=== PATIENT | male | born 1990 | race African-American/Black ===

== ENCOUNTER 2019-07-09 23:43 | Inpatient (IN) | payer OTHER ==
[~2019-07-09] VITALS: Ht 180.3 cm; Wt 109.0 kg
--- NOTE | 2019-07-09 23:50 | PHYS DOC ---
Adult General Chief Complaint Chief Complaint: Right ankle injury HPI HPI Patient is a 29 year old -[place] male who is brought to the ER by EMS from the correctional facility secondary to right ankle injury. Patient states that he jumped off of a low table and his leg gave out. EMS report a deformity and he is currently in a splint. Patient has refused IV and pain medication at this time but is very cooperative otherwise. No numbness or tingling distally and he is able to move his toes. Pulses are intact. Review of Systems Review of Systems All other systems were reviewed and found to be within normal limits, except as documented in this note. Current Medications Current Medications Current Medications Medications (Trade) Dose Ordered Sig/Denis Start Time Stop Time Status Last Admin Dose Admin Ondansetron HCl (Zofran) 4 mg 1X ONCE 07/10/19 01:00 07/10/19 01:01 DC Propofol (Diprivan) 200 mg 1X ONCE 07/10/19 01:00 07/10/19 01:01 DC Allergies Allergies Allergies Coded Allergies Type Severity Reaction Last Updated Verified No Known Drug Allergies 07/10/19 No Physical Exam Physical Exam Constitutional: Well developed, well nourished, no acute distress, non-toxic appearance. [] HENT: Normocephalic, atraumatic, bilateral external ears normal, oropharynx moist, no oral exudates, nose normal. [] Eyes: PERRLA, EOMI, conjunctiva normal, no discharge. [] Neck: Normal range of motion, no tenderness, supple, no stridor. [] Cardiovascular:Heart rate regular rhythm, no murmur [] Lungs & Thorax: Bilateral breath sounds clear to auscultation [] Abdomen: Bowel sounds normal, soft, no tenderness, no masses, no pulsatile masses. [] Skin: Warm, dry, no erythema, no rash. [] Back: No tenderness, no CVA tenderness. [] Extremities: Normal except for the right ankle which is currently in a splint by EMS. There appears to be a lateral deformity. Pulses are intact and sensation is normal in movement of the toes is normal. Neurologic: Alert and oriented X 3, normal motor function, normal sensory function, no focal deficits noted. [] Psychologic: Affect normal, judgement normal, mood normal. [] Current Patient Data Vital Signs Vital Signs Date Time Temp Pulse Resp B/P (MAP) Pulse Ox O2 Delivery O2 Flow Rate FiO2 07/09/19 23:59 98.4 89 20 151/93 (112) 99 Room Air 98.4 Lab Values Laboratory Tests Test 07/10/19 00:40 White Blood Count 11.1 x10^3/uL (4.0-11.0) H Red Blood Count 5.22 x10^6/uL (4.30-5.70) Hemoglobin 15.7 g/dL (13.0-17.5) Hematocrit 45.4 % (39.0-53.0) Mean Corpuscular Volume 87 fL (79-100) Mean Corpuscular Hemoglobin 30 pg (25-35) Mean Corpuscular Hemoglobin Concent 35 g/dL (31-37) Red Cell Distribution Width 13.1 % (11.5-14.5) Platelet Count 360 x10^3/uL (140-400) Neutrophils (%) (Auto) 75 % (31-73) H Lymphocytes (%) (Auto) 19 % (24-48) L Monocytes (%) (Auto) 6 % (0-9) Eosinophils (%) (Auto) 0 % (0-3) Basophils (%) (Auto) 1 % (0-3) Neutrophils # (Auto) 8.3 x10^3/uL (1.8-7.7) H Lymphocytes # (Auto) 2.1 x10^3/uL (1.0-4.8) Monocytes # (Auto) 0.6 x10^3/uL (0.0-1.1) Eosinophils # (Auto) 0.0 x10^3/uL (0.0-0.7) Basophils # (Auto) 0.1 x10^3/uL (0.0-0.2) Sodium Level 137 mmol/L (136-145) Potassium Level 4.1 mmol/L (3.5-5.1) Chloride Level 101 mmol/L (98-107) Carbon Dioxide Level 28 mmol/L (21-32) Anion Gap 8 (6-14) Blood Urea Nitrogen 14 mg/dL (8-26) Creatinine 1.4 mg/dL (0.7-1.3) H Estimated GFR (Cockcroft-Gault) 72.0 Glucose Level 94 mg/dL (70-99) Calcium Level 8.8 mg/dL (8.5-10.1) Laboratory Tests 07/10/19 00:40 Laboratory Tests 07/10/19 00:40 EKG EKG [] Radiology/Procedures Radiology/Procedures Right ankle 3 views: Reason for examination: Deformity. Ankle pain after trauma. There is a fracture of the distal fibular malleolus which is approximately 7.5 mm displacement. There is also a transverse fracture at the medial malleolus with 1.4 cm displacement of the tibia medially at the talus. The talus and calcaneus appear to be intact. There there are also noted to be chronic changes with nonunion of fracture of the midshaft of the fibula with multiple metallic fragments in the soft tissues. 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 Fractures of the tibia and fibular malleolus with medial displacement of the tibia in relationship to the talus.[] Course & Med Decision Making Course & Med Decision Making Pertinent Labs and Imaging studies reviewed. (See chart for details) 2349: Patient seen for an ankle injury. We will start with an x-ray as the patient would not like an IV at this time unless needed. 0043: Patient has distal fractures of his tibia and fibula with a partial dislocation. I spoke with orthopedics who recommend reduction in the ED, splin ting, admission to the hospitalist. Will perform moderate sedation with closed reduction and admit. Dragon Disclaimer Dragon Disclaimer This electronic medical record was generated, in whole or in part, using a voice recognition dictation system. Departure Departure Impression: Primary Impression: Closed fracture dislocation of right ankle Disposition: ADMITTED INPATIENT Admitting Physician: LOTTIE Condition: STABLE MODERATE SEDATION ASSESSMENT RISKS/ALTERNATIVES Risks/Alternatives Risks and alternatives of this type of sedation and procedure discussed with: RISK/ALTERNATIVES: Patient H & P ON CHART H & P H & P on chart and reviewed for co-morbid conditions and appropriate labs. H&P ON CHART: Yes STATUS PREG STATUS ASSESSED: N/A MEDS/ALLERGIES REVIEWED Meds/Allergies Reviewed Medications and Allergies including time and route of recently administered narcotics and sedatives. MEDS/ALLERGIES REVIEWED: Yes ASA RATING ASA RATING: I AIRWAY ASSESSMENT Airway Assessment Airway patency, oral function limitations, presence of caps, crowns, dentures, partials, and ability to extend neck assessed. AIRWAY ASSESSMENT: Yes MALLAMPATI SCORE MALLAMPATI SCORE: I PRE-SEDATION ASSESSMENT PRE-SEDATION ASSESSMENT: Yes Joint Reduction Procedure Joint Indication: Joint dislocation Consent: Consent was obtained. Procedure: The pre-reduction exam showed distal perfusion and neurologic function to be normal.. The patient was placed in the appropriate position. Anesthesia/pain control 190 mg of propofol. Reduction of the right ankle fracture dislocation was performed by distraction manipulation. Post reduction films were obtained and revealed satisfactory reduction. A post-reduction exam revealed distal perfusion and neurologic function to be normal. The affected area was immobilized with posterior lower leg and stirrup splint. The patient tolerated the procedure well. Complications: none. LUCAS FONSECA DO Jul 09, 2019 23:49
--- NOTE | 2019-07-10 00:38 | RAD ---
Right ankle 3 views: Reason for examination: Deformity. Ankle pain after trauma. There is a fracture of the distal fibular malleolus which is approximately 7.5 mm displacement. There is also a transverse fracture at the medial malleolus with 1.4 cm displacement of the tibia medially at the talus. The talus and calcaneus appear to be intact. There there are also noted to be chronic changes with nonunion of fracture of the midshaft of the fibula with multiple metallic fragments in the soft tissues. 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 Fractures of the tibia and fibular malleolus with medial displacement of the tibia in relationship to the talus. Electronically signed by: Christy Garcia MD (07/10/2019 12:35 AM) [id number]
[2019-07-10 00:49] LABS: BASO # 0.1 x10^3/uL (0.0-0.2); BASO % 1 % (0-3); EOS % 0 % (0-3); HEMATOCRIT 45.4 % (39.0-53.0); HEMOGLOBIN 15.7 g/dL (13.0-17.5); LYMPH # 2.1 x10^3/uL (1.0-4.8); LYMPH % 19 % (24-48); MEAN CORPUSCULAR HEMOGLOBIN 30 pg (25-35); MEAN CORPUSCULAR HGB CONC 35 g/dL (31-37); MEAN CORPUSCULAR VOLUME 87 fL (79-100); MONO # 0.6 x10^3/uL (0.0-1.1); MONO % 6 % (0-9); NEUT # 8.3 x10^3/uL (1.8-7.7); NEUT % 75 % (31-73); PLATELET COUNT 360 x10^3/uL (140-400); RED BLOOD COUNT 5.22 x10^6/uL (4.30-5.70); RED CELL DISTRIBUTION WIDTH 13.1 % (11.5-14.5); WHITE BLOOD COUNT 11.1 x10^3/uL (4.0-11.0)
[2019-07-10 00:59] LABS: CALCIUM 8.8 mg/dL (8.5-10.1); CREATININE 1.4 mg/dL (0.7-1.3); POTASSIUM 4.1 mmol/L (3.5-5.1)
[2019-07-10] MEDS ORDERED: ONDANSETRON PF 4 MG/2 ML VIAL. IVP ONE (01:00)
[2019-07-10] MEDS ORDERED: PROPOFOL 10 MG/ML (20ML) VIAL. IV ONE ×2 (01:00)
[2019-07-10 01:03] LABS: PROTHROMBIN TIME PATIENT 13.9 SEC (11.7-14.0)
[2019-07-10 01:19] VITALS: BP 164/93
[2019-07-10] MEDS ORDERED: MORPHINE SULFATE 2 MG/ML VIAL. IV PRN (01:30)
[2019-07-10] MEDS ORDERED: ONDANSETRON PF 4 MG/2 ML VIAL. IV PRN (01:30)
--- NOTE | 2019-07-10 01:43 | RAD ---
Right ankle 3 views: Reason for examination: Post reduction of fractures. Splint is now present. There is improved alignment at the fractures of the tibial and fibular malleolus. There is improved alignment of the tibia on the talus. There is soft tissue edema present. IMPRESSION: Fractures of the tibial and fibular malleolus right with improved alignment. Improved alignment of the tibial metaphysis. . Electronically signed by: Christy Garcia MD (07/10/2019 1:41 AM) [id number]
--- NOTE | 2019-07-10 02:32 | NUR ---
The patient, MCCORMACK,NATA A, 29 y/o, M admitted by DIANA BURR III, DO, was given written information regarding hospital policies, unit procedures and contact persons. Valuables were checked and left him.
[2019-07-10 03:00] VITALS: BP 145/92
[2019-07-10] MEDS: fentaNYL PF VIAL 100 MCG/2 ML VIAL IV PRN ×3 (03:45→13:23)
[2019-07-10 07:00] VITALS: BP 134/83
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
[2019-07-10 11:00] VITALS: BP 147/90
[2019-07-10] MEDS ORDERED: ACETAMINOPHEN 325 MG TABLET. PO PRN (12:45)
[2019-07-10] MEDS ORDERED: HEPARIN for SUB-Q USE 5,000 UNIT/ML VIAL. SQ SCH (14:00)
[2019-07-10 15:00] VITALS: BP 115/86
--- NOTE | 2019-07-10 15:00 | PDOC3 ---
Discharge Summary Visit Information Date of Admission: Jul 10, 2019 Date of Discharge: Jul 10, 2019 Admitting Diagnosis: Right ankle dislocation and fracture Final Diagnosis Problems Medical Problems: (1) Closed fracture dislocation of right ankle Status: Acute Brief Hospital Course Allergies Allergies Coded Allergies Type Severity Reaction Last Updated Verified No Known Drug Allergies 07/10/19 No Vital Signs Vital Signs Date Time Temp Pulse Resp B/P (MAP) Pulse Ox O2 Delivery O2 Flow Rate FiO2 07/10/19 14:18 Room Air 07/10/19 11:00 98.3 67 17 147/90 (109) 97 98.3 07/10/19 04:33 4.0 Lab Results Laboratory Tests Test 07/10/19 00:40 White Blood Count 11.1 x10^3/uL (4.0-11.0) Red Blood Count 5.22 x10^6/uL (4.30-5.70) Hemoglobin 15.7 g/dL (13.0-17.5) Hematocrit 45.4 % (39.0-53.0) Mean Corpuscular Volume 87 fL (79-100) Mean Corpuscular Hemoglobin 30 pg (25-35) Mean Corpuscular Hemoglobin Concent 35 g/dL (31-37) Red Cell Distribution Width 13.1 % (11.5-14.5) Platelet Count 360 x10^3/uL (140-400) Neutrophils (%) (Auto) 75 % (31-73) Lymphocytes (%) (Auto) 19 % (24-48) Monocytes (%) (Auto) 6 % (0-9) Eosinophils (%) (Auto) 0 % (0-3) Basophils (%) (Auto) 1 % (0-3) Neutrophils # (Auto) 8.3 x10^3/uL (1.8-7.7) Lymphocytes # (Auto) 2.1 x10^3/uL (1.0-4.8) Monocytes # (Auto) 0.6 x10^3/uL (0.0-1.1) Eosinophils # (Auto) 0.0 x10^3/uL (0.0-0.7) Basophils # (Auto) 0.1 x10^3/uL (0.0-0.2) Prothrombin Time 13.9 SEC (11.7-14.0) Prothromb Time International Ratio 1.1 (0.8-1.1) Activated Partial Thromboplast Time 25 SEC (24-38) Sodium Level 137 mmol/L (136-145) Potassium Level 4.1 mmol/L (3.5-5.1) Chloride Level 101 mmol/L (98-107) Carbon Dioxide Level 28 mmol/L (21-32) Anion Gap 8 (6-14) Blood Urea Nitrogen 14 mg/dL (8-26) Creatinine 1.4 mg/dL (0.7-1.3) Estimated GFR (Cockcroft-Gault) 72.0 Glucose Level 94 mg/dL (70-99) Calcium Level 8.8 mg/dL (8.5-10.1) 25-Hydroxy Vitamin D Total 15.3 ng/mL (30-100) Laboratory Tests Test 07/10/19 00:40 White Blood Count 11.1 x10^3/uL (4.0-11.0) Red Blood Count 5.22 x10^6/uL (4.30-5.70) Hemoglobin 15.7 g/dL (13.0-17.5) Hematocrit 45.4 % (39.0-53.0) Mean Corpuscular Volume 87 fL (79-100) Mean Corpuscular Hemoglobin 30 pg (25-35) Mean Corpuscular Hemoglobin Concent 35 g/dL (31-37) Red Cell Distribution Width 13.1 % (11.5-14.5) Platelet Count 360 x10^3/uL (140-400) Neutrophils (%) (Auto) 75 % (31-73) Lymphocytes (%) (Auto) 19 % (24-48) Monocytes (%) (Auto) 6 % (0-9) Eosinophils (%) (Auto) 0 % (0-3) Basophils (%) (Auto) 1 % (0-3) Neutrophils # (Auto) 8.3 x10^3/uL (1.8-7.7) Lymphocytes # (Auto) 2.1 x10^3/uL (1.0-4.8) Monocytes # (Auto) 0.6 x10^3/uL (0.0-1.1) Eosinophils # (Auto) 0.0 x10^3/uL (0.0-0.7) Basophils # (Auto) 0.1 x10^3/uL (0.0-0.2) Prothrombin Time 13.9 SEC (11.7-14.0) Prothromb Time International Ratio 1.1 (0.8-1.1) Activated Partial Thromboplast Time 25 SEC (24-38) Sodium Level 137 mmol/L (136-145) Potassium Level 4.1 mmol/L (3.5-5.1) Chloride Level 101 mmol/L (98-107) Carbon Dioxide Level 28 mmol/L (21-32) Anion Gap 8 (6-14) Blood Urea Nitrogen 14 mg/dL (8-26) Creatinine 1.4 mg/dL (0.7-1.3) Estimated GFR (Cockcroft-Gault) 72.0 Glucose Level 94 mg/dL (70-99) Calcium Level 8.8 mg/dL (8.5-10.1) 25-Hydroxy Vitamin D Total 15.3 ng/mL (30-100) Brief Hospital Course Mr Pope is a 29 yo -Fil[place] male who is brought to the ER by EMS from the correctional facility secondary to right ankle injury. Patient states that he jumped off of a low table and his ankle rolled and he was unable to stand. He was noted with ankle deformity by EMS, was placed in 3-way splint. No numbness or tingling distally and he is able to move his toes. Pulses are intact. Xray noted distal fibular mallelar fracture and transverse fracture at medial malleolus with 1.4cm displacement. Successfully reduced in ED with improved post-reduction Xray. Called for admission with orthopedic surgical consultation. Cr 1.4, WBC 11.1, otherwise labs WNL. He notes no PMHx that he is aware of, but does seem rather obsessed with his history of fractures, states he thinks he has brittle bones based on radius fracture of his right arm when he was a child and feel off playground equipment and a right ankle fracture previously when he was playing football. He also notes right hand fracture from a boxing injury. Given IVF overnight for his renal insufficiency. Seen by orthopedic surgeon, Dr. Huynh who recommended non-weight bearing for the next 6 weeks and operative correction. Right ankle fracture dislocation with transverse fracture of the medial malleolus which will require surgical fixation. However, given the extent of soft tissue swelling orthopedic surgery has recommended surgery within 1 week, able to schedule on 07/17/2019, 0730. OR time has been booked. Will need to return NPO for surgery at least 45 minutes prior to planned surgery. Greater than 135 minutes spent on admit and d/c Discharge Information Condition at Discharge: Stable Follow Up: Weeks (1) Disposition/Orders: D/C to Another Facility ZARINA COSTELLO MD Jul 10, 2019 15:00
[2019-07-10] MEDS ORDERED: ACET325T9 PO (15:02)
--- NOTE | 2019-07-10 15:05 | SNU/HH DC ---
DISCHARGE ORDERS DISCHARGE INFORMATION: DISCHARGE DATE: Jul 10, 2019 FINAL DIAGNOSIS Problems Medical Problems: (1) Closed fracture dislocation of right ankle Status: Acute CONDITION ON DISCHARGE: Stable CODE STATUS: Code Status: Full POST DISCHARGE ORDERS: ACTIVITY ORDERS: Other, see below WEIGHT BEARING STATUS: Non weight bearing (Non-weightbearing right leg) DIET AFTER DISCHARGE: Regular WOUND/INCISION CARE: Ice to area for comfort, Keep wound/cast CDI, Keep wound elevated, Do not change dressing FOLLOW-UP: PHYSICIAN FOLLOW-UP: Dr. Abner Huynh 07/17/2019 - [facility] 0730 for surgery Additional Instructions: Orthopedic surgeon, Dr. Huynh recommended non-weight bearing for the next 6 weeks and operative correction. Right ankle fracture dislocation with transverse fracture of the medial malleolus which will require surgical fixation. However, given the extent of soft tissue swelling orthopedic surgery has recommended surgery within 1 week, able to schedule on 07/17/2019, 0730. OR time has been booked. Will need to return NPO (no food after midnight on 07/10/2019. Arrive for surgery at least 90 minutes prior to planned surgery. TREATMENT/EQUIPMENT ORDERS: ADAPTIVE EQUIPMENT NEEDED: Crutches Physical Therapy For: Evalulation/Treatment Occupational Therapy For: Evaluation/Treatment DISCHARGE MEDICATIONS: Home Meds Active Scripts Acetaminophen (TYLENOL) 325 Mg Tablet, 650 MG PO PRN Q6HRS PRN for pain for 30 Days, #120 TAB Prov:ZARINA COSTELLO MD 07/10/19 ZARINA COSTELLO MD Jul 10, 2019 15:05
--- NOTE | 2019-07-10 18:07 | NUR ---
Pt. transferred back to skilled nursing via with 2 guards. RLE splint CDI.
== END 2019-07-10 18:10 | DRG 563 ==
LOC: ER 23:43 → EEVIPCON 23:43 → 4 NORTH 07-10 01:07
PROVIDERS: ADMIT Internal Medicine; ATTEND Internal Medicine
PROC: 0SSFXZZ Reposition Right Ankle Joint, External Approach (ICD-10-PCS; principal; 2019-07-10)
DX: S82.891A Other fracture of right lower leg, initial encounter for closed fracture (principal); N17.9 Acute kidney failure, unspecified; W17.89XA Other fall from one level to another, initial encounter; S93.04XA Dislocation of right ankle joint, initial encounter; S82.51XA Displaced fracture of medial malleolus of right tibia, initial encounter for closed fracture; S82.61XA Displaced fracture of lateral malleolus of right fibula, initial encounter for closed fracture; Z82.49 Family history of ischemic heart disease and other diseases of the circulatory system; Z83.3 Family history of diabetes mellitus; Y93.89 Activity, other specified; Y92.89 Other specified places as the place of occurrence of the external cause; Y99.8 Other external cause status
CPT/HCPCS: 27840; 36415; 73600; 73610; 80048; 82306; 85025; 85610; 85730; 96372; 96374; 96375; J1644; J2270; J2704; J3010; 99285-25; G0378

== ENCOUNTER 2019-07-17 05:48 | Day surgery (SDC) | payer OTHER ==
[~2019-07-17] VITALS: Ht 180.3 cm; Wt 111.0 kg
[~2019-07-17 05:48] MED LIST: ACET325T9 PO; CALC300T5 PO; CIME200T6 PO; IBUP-1027 PO; [UNRECOGNIZED DRUG - CODE] IM
[2019-07-17] MEDS ORDERED: DEXAMETHASONE SOD PHOS 4 MG/ML VIAL ONE (06:55)
[2019-07-17] MEDS ORDERED: LIDOCAINE 2% PF 5 ML VIAL. ONE ×2 (06:55→09:04)
[2019-07-17] MEDS ORDERED: PROPOFOL 20 ML IV ONE (06:55)
[2019-07-17] MEDS ORDERED: ONDANSETRON PF 4 MG/2 ML VIAL. ONE (06:55)
[2019-07-17] MEDS ORDERED: ROCURONIUM 50 MG/5 ML VIAL. ONE (06:55)
[2019-07-17] MEDS ORDERED: SUCCINYLCHOLINE 200 MG/10 ML VIAL. ONE (06:56)
[2019-07-17] MEDS ORDERED: LIDOCAINE 1% PF 2 ML VIAL. ID PRN (07:00)
[2019-07-17] MEDS ORDERED: PROCHLORPERAZINE 10 MG/2 ML VIAL. IV PRN (07:00)
[2019-07-17] MEDS ORDERED: LIDOCAINE 1% Multi-Dose 20 ML VIAL. ONE (07:00)
[2019-07-17] MEDS ORDERED: IV RINGERS,LACTATED 1000ML 1,000 ML IV SCH (07:00)
[2019-07-17] MEDS ORDERED: HYDROmorphone 2 MG/ML VIAL IV PRN (07:00)
[2019-07-17] MEDS ORDERED: MORPHINE SULFATE 2 MG/ML VIAL. IV PRN (07:00)
[2019-07-17] MEDS ORDERED: BUPIVACAINE MPF 0.5% 30 ML VIAL. ONE (07:00)
[2019-07-17] MEDS ORDERED: ONDANSETRON PF 4 MG/2 ML VIAL. IV PRN (07:00)
[2019-07-17] MEDS ORDERED: fentaNYL PF VIAL 100 MCG/2 ML VIAL ONE ×2 (07:53→08:59)
[2019-07-17] MEDS ORDERED: BUPIVACAINE MPF 0.5% 30 ML VIAL. IJ ONE (08:09)
[2019-07-17] MEDS ORDERED: LIDOCAINE 1% Multi-Dose 20 ML VIAL. INJ ONE (08:09)
[2019-07-17] MEDS ORDERED: GLYCOPYRROLATE 1 MG/5 ML VIAL. ONE (08:28)
[2019-07-17] MEDS ORDERED: NEOSTIGMINE METHYLSULFATE 5 MG/5 ML SYRINGE. ONE (08:28)
[2019-07-17] MEDS ORDERED: SEVOFLURANE 61 TO 120 MINUTES. IH ONE (09:04)
--- NOTE | 2019-07-17 09:06 | DISCH ---
DISCHARGE INSTRUCTIONS Condition on Discharge Condition on Discharge: Stable Activity After Discharge Activity Instructions for Disc: Activity as tolerated Other activity instructions: No walking on right leg Bathing Instructions: Shower-keep dressing dry Lifting Instructions after Dis: No heavy lifting Weight Bearing Status after Di: Non weight bearing Diet after Discharge Diet after Discharge: Regular Wound Incision Care Wound/Incision Care: Ice to area for comfort, Keep wound/cast CDI, Keep wound elevated Other wound/incision instructi: Okay to change dressing after 2 to 3 days, keep incision covered, Contacting the DR. after DC Call your doctor for: Concerns you may have Follow-Up Follow up with: Lino in 6 weeks Treatment/Equipment after DC Adaptive Equipment Issued: None, BRITT Humphrey II, MD Jul 17, 2019 09:06
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
[2019-07-17] MEDS ORDERED: TRAM50TA PO (09:22)
[2019-07-17] MEDS: fentaNYL PF VIAL 100 MCG/2 ML VIAL IV PRN ×4 (09:53→11:15)
[2019-07-17] MEDS: traMADol 50 MG TABLET PO ONE ×2 (09:57→10:44)
[2019-07-17 11:15] VITALS: BP 172/85
== END 2019-07-17 12:18 | disposition home or self-care (01) ==
LOC: SURG 05:48 → EEVIPCON 08:00 → SURG 12:18
PROVIDERS: ATTEND Orthopaedic Surgery Sports Medicine
DX: S82.841A Displaced bimalleolar fracture of right lower leg, initial encounter for closed fracture (principal); X58.XXXA Exposure to other specified factors, initial encounter; Y93.89 Activity, other specified; Y92.89 Other specified places as the place of occurrence of the external cause; Y99.8 Other external cause status; Z79.899 Other long term (current) drug therapy
CPT/HCPCS: 27814; 76000; A7015; C1713; J0330; J0696; J1100; J2405; J2704; J2710; J3010; J3490